=== PATIENT | female | born 2000 | race Caucasian/White ===

== ENCOUNTER 2022-11-04 10:16 | Emergency (ER) | payer BC ==
[2022-11-04] MEDS ORDERED: Morphine 4 MG/ML VIAL ONE (10:47)
[2022-11-04] MEDS ORDERED: Lactated Ringer's 1,000 ML IV SCH (11:15)
[2022-11-04 12:00] LABS: #Basophils 0.1 10x3/uL (0.0-0.2); #Monocytes 0.4 10x3/uL (0.0-1.1); %Basophils 0.5 % (0.0-2.0); %Eosinophils 0.1 % (0.0-6.0); %Lymphocytes 14.3 % (18.0-47.0); %Monocytes 3.6 % (0.0-10.0); Hemoglobin 11.1 g/dL (12.0-15.5); Mean Corpuscular HGB CONC 33.6 g/dL (32.0-36.0); Mean Corpuscular Hemoglobin 29.5 pg (27.0-33.0); Mean Corpuscular Volume 87.8 fl (81.6-98.3); Mean Platelet Volume 10.1 fl (7.4-10.4); Platelet Count 225 10x3/uL (150-450); RBC Distribution Width 12.8 % (11.5-14.5); Red Blood Cell (RBC) Count 3.76 10x6/uL (3.90-5.03); White Blood Cell (WBC) Count 11.1 10x3/uL (3.5-10.5)
[2022-11-04 12:08] LABS: BHCG - Serum Negative (NEGATIVE); Pregs Control Background? CLEAR/WHITE (CLR/WHITE); Pregs Control Bar Appear? YES (CONTROL BAR)
[2022-11-04 12:09] LABS: ALT (SGPT) 9 U/L (8-55); AST (SGOT) 14 U/L (5-34); Albumin 3.9 g/dL (3.5-5.0); Alkaline Phosphatase 54 U/L (40-110); Anion Gap 13 mmol/L (10-20); BUN (Urea Nitrogen) 8 mg/dL (7.0-18.7); Bilirubin, Total 0.4 mg/dL (0.2-1.2); Calc. Creatinine Clearance 0 mL/min (70-130); Calcium 8.4 mg/dL (7.8-10.44); Carbon Dioxide 21 mmol/L (22-29); Chloride 109 mmol/L (98-107); Estimated GFR 114; Globulin 2.1 g/dL (2.4-3.5); Glucose 88 mg/dL (70-105); Potassium 3.9 mmol/L (3.5-5.1); Sodium 139 mmol/L (136-145)
[2022-11-04] MEDS ORDERED: Bupivacaine HCl 0.5%/Epinephrine 1:200,000/PF 30 ml Vial ONE (12:29)
[2022-11-04] MEDS ORDERED: PROPOFOL 20 ML ONE (12:41)
[2022-11-04] MEDS ORDERED: Fentanyl 100 MCG/2 ML VIAL ONE ×2 (12:42→14:02)
[2022-11-04] MEDS ORDERED: Succinylcholine 200 MG/10 ml SYRINGE FS ONE (12:57)
[2022-11-04] MEDS ORDERED: CEFAZOLIN 1 GM VIAL ONE (12:58)
[2022-11-04] MEDS ORDERED: Lidocaine 2% PF 5 ML VIAL ONE (12:58)
[2022-11-04] MEDS ORDERED: ePHEDrine Sulfate 50 MG/10 ML VIAL ONE (12:59)
[2022-11-04] MEDS ORDERED: Metoclopramide HCl 10 MG/2 ML VIAL ONE (13:16)
[2022-11-04] MEDS ORDERED: Meperidine HCl/PF 25 MG/ML VIAL ONE (13:24)
[2022-11-04] MEDS ORDERED: Glycopyrrolate 0.2 MG/ML 5 ML SYRINGE ONE (13:27)
[2022-11-04] MEDS ORDERED: Morphine 2 MG/ML VIAL SLOW IVP PRN (13:50)
[2022-11-04] MEDS ORDERED: Ketorolac Tromethamine 30 MG/ML VIAL IVP PRN (13:50)
[2022-11-04] MEDS ORDERED: Sodium Chloride 0.9% 1,000 ML IV SCH (14:00)
[2022-11-04] MEDS ORDERED: Acetaminophen/Codeine 30-300mg Tablet PO PRN (14:14)
[2022-11-04] MEDS ORDERED: Ketorolac Tromethamine 30 MG/ML VIAL ONE (14:20)
[2022-11-04 14:25] LABS: Hemoglobin 11.4 g/dL (12.0-15.5)
[2022-11-04] MEDS ORDERED: Morphine 2 MG/ML VIAL ONE (15:01)
[2022-11-04] MEDS ORDERED: HYDROcodone/Acetaminophen 5/325 mg Tablet ONE (15:56)
[2022-11-04] MEDS ORDERED: Ibuprofen 800 MG TAB PO SCH (18:00)
== END 2022-11-04 12:35 | disposition home or self-care (01) ==
LOC: CSHERS 10:16
DX: N83.512 Torsion of left ovary and ovarian pedicle (principal)
CPT/HCPCS: 36415; 80053; 84703; 85025; 86850; 86900; 86901; 96374; J0690; J1885; J2001; J2175; J2270; J2272; J2704; J2765; J3010